=== PATIENT | male | born 1985 | race Caucasian/White ===

== ENCOUNTER 2019-03-09 10:55 | Emergency (ER) | payer SELFPAY ==
[2019-03-09 10:56] VITALS: BP 138/94; PULSE 88; RESP 17; TEMP 36.4; O2SAT 98; BMI 22.5
--- NOTE | 2019-03-09 11:32 | ED.DCSUM_ITS ---
History of Present Illness Chief Complaint: Laceration Informant: Patient Onset: Today Context: Sudden Onset Timing: Continuous Narrative: Patient is a 34-year-old male with no past medical history presenting with laceration to his left index finger. He is right-hand dominant. Patient states he was at work using a jukebox coin collector when he tried to use his left hand to swat at a BB. He actually cut himself with a jukebox coin collector. He has some associated tingling and pain at the site but denies any other complaints. He is not sure when his last tetanus shot was. He denies any other complaints or injuries. Past Medical History - Allergies and Home Meds Allergies/Adverse Reactions: Allergies No Known Allergies Allergy (Verified 03/09/19 10:56) Primary Care Physician: Care Physician,No Primary [Primary Care Provider] - Past Medical History: None Surgical History: no surgical history Review of Systems All systems negative except as indicated Skin: Reports: Wounds - Index finger-left Physical Exam Vital Signs/Narrative: Vital Signs Temp Pulse Resp BP Pulse Ox 03/09/19 10:56 97.5 F L 88 17 138/94 H 98 Inital Vital Signs reviewed: Yes General: Well nourished, Well developed, No Acute Distress Head: Normocephalic, Atraumatic Eyes: Perrl, EOMI ENT: Moist mucous membranes, No rhinorrhea Neck: Supple, Nontender Cardiovascular: Regular rate, Regular rhythm, No murmurs Respiratory: No distress, CTA bilaterally, Chest nontender Abdomen: Soft, Nontender, Nondistended, Normal bowel sounds Back: Nontender, Normal Inspection Extremities: Nontender, No edema Skin: Normal color, Trauma - 1.5 cm linear laceration over left index finger, radial aspect over middle phalanges Neurological: Alert, Oriented x3, Cranial nerves II-XII grossly intact, Normal Strength, Normal Sensation Psychological: Normal affect, Normal Mood Diagnostic/Tx/Re-eval - Medical Decision Making Patient is evaluated for simple laceration to his left index finger. He is neurovascularly intact. He has no symptoms consistent with a tendinous injury. Tetanus is updated. Laceration repair performed. See procedure note. Patient given Motrin for pain. Patient is counseled on signs and symptoms requiring return to the emergency room. Patient verbalizes agreement and understand this plan. Patient discharged home in stable and improved condition. Procedures - Lacerations No standard instances Length: 0.59 in Depth: Sub Q Shape: Linear Prep: Sterile Conditions, Chlorhexadine Laceration repair: Digital block, Irrigated, Lidocaine, Wound explored Irrigated (ml): 500 - Ran under running water Number of Sutures/Jad: 3 Suture Information: Ethilon, Simple, 4-0 Comment: Tourniquet used during suturing secondary to bleeding. Tolerated procedure well. Bandaged after dressing ointments. No immediate complications ED Disposition - Plan for ED Patient: Disposition: Home or Assisted Living Diagnosis: Laceration of left index finger, Need for tetanus booster Instructions: LACERATION, Hand Referrals: Care Physician,No Primary [Primary Care Provider] - Doctor,Your [STAFF PHYSICIAN] - Additional Instructions: See your primary care doctor or urgent care for suture removal in 10 days. Return if you have worsening symptoms such as fever, redness, pain or pussy discharge. Take [id number] ibuprofen as needed for pain.
[2019-03-09] MEDS: Diphth,Pertuss(Acell),Tet Vac 0.5 ML Vial IM (11:38)
[2019-03-09] MEDS: Ibuprofen 600 MG Tablet PO (12:38)
== END 2019-03-09 12:41 | disposition home or self-care (01) ==
PROVIDERS: Emergency Provider Emergency Medicine
DX: S61.211A Laceration without foreign body of left index finger without damage to nail, initial encounter (principal); W26.8XXA Contact with other sharp object(s), not elsewhere classified, initial encounter; Y93.89 Activity, other specified; Y92.9 Unspecified place or not applicable
CPT/HCPCS: 12001; 90471; 90715; 99284